=== PATIENT | female | born 1980 | race African-American/Black ===

== ENCOUNTER 2021-08-25 12:20 | Emergency (ER) | payer SELFPAY ==
[~2021-08-25] VITALS: Ht 172.7 cm; Wt 70.3 kg
--- NOTE | 2021-08-25 12:30 | NUR ---
BIB Family From"Home- Fell down 5steps last night. +BARBA/neck/Right ear/Wrist. Vitals are within normal limtis. Breathing is even and unlabored
--- NOTE | 2021-08-25 12:45 | NUR ---
TAKEN TO CT
[2021-08-25] MEDS ORDERED: TDAP [DIPH/PERTUSSIS/TET] 0.5 ML VIAL IM ONE ×2 (12:59→13:00)
[2021-08-25] MEDS ORDERED: ACETAMINOPHEN W/ CODEINE#3 1 EA TABLET ONE (12:59)
[2021-08-25] MEDS ORDERED: ACETAMINOPHEN W/ CODEINE#3 1 EA TABLET PO ONE (13:00)
[2021-08-25 13:10] VITALS: BP 116/80
--- NOTE | 2021-08-25 14:10 | NUR ---
Patient discharged to home in stable condition. Written and verbal after care instructions given. Patient verbalizes understanding of instruction.
== END 2021-08-25 14:10 | disposition home or self-care (01) ==
LOC: ER 12:25
DX: S01.81XA Laceration without foreign body of other part of head, initial encounter (principal); S63.591A Other specified sprain of right wrist, initial encounter; W10.8XXA Fall (on) (from) other stairs and steps, initial encounter; Y93.89 Activity, other specified; Y92.89 Other specified places as the place of occurrence of the external cause; Y99.8 Other external cause status
CPT/HCPCS: 12013; 70450; 73110; 90471; 90715; 99284; A6403; L0172